=== PATIENT | female | born 1995 | race Caucasian/White ===

== ENCOUNTER 2016-12-31 10:29 | Emergency (ER) | payer BC ==
[2016-12-31 11:10] VITALS: BP 118/72
--- NOTE | 2016-12-31 11:49 | UC ---
Hand/Wrist HPI - HPI Summary HPI Summary: REACHING FOR HER PHONE LAST NIGHT WHILE IN BED. FELL OFF BED AND LANDED ON LEFT HAND. NOW HAS PAIN TO LEFT THUMB. - History Of Current Complaint Chief Complaint: UCUpperExtremity Stated Complaint: THUMB INJURY Time Seen by Provider: 12/31/16 11:44 Hx Obtained From: Patient Hx Last Menstrual Period: 12/24/16 Onset/Duration: Sudden Onset, Lasting Hours, Still Present Severity Initially: Moderate Severity Currently: Moderate Pain Intensity: 8 Pain Scale Used: 0-10 Numeric Character Of Pain: Aching Aggravating Factor(s): Movement Alleviating: Rest Associated Signs And Symptoms: Positive: Swelling Related History: Dominant Hand Right - Allergies/Home Medications Allergies/Adverse Reactions: Allergies Allergy/AdvReac Type Severity Reaction Status Date / Time Sulfa Antibiotics Allergy Rash Verified 12/31/16 11:10 PMH/Surg Hx/FS Hx/Imm Hx Previously Healthy: Yes - Surgical History Surgical History: Yes Surgery Procedure, Year, and Place: LUMBAR PUNCTURE 10/05/13 - Family History Known Family History: Positive: Hypertension Negative: Diabetes - Social History Alcohol Use: Occasionally Alcohol Amount: SOCIAL Substance Use Type: None Smoking Status (MU): Never Smoked Tobacco - Immunization History Most Recent Tetanus Shot: UNSURE (PT IS IN COLLEGE) Review of Systems Constitutional: Negative Skin: Negative Respiratory: Negative Cardiovascular: Negative Gastrointestinal: Negative Musculoskeletal: Arthralgia, Decreased ROM All Other Systems Reviewed And Are Negative: Yes Physical Exam Triage Information Reviewed: Yes Appearance: Well-Appearing, No Pain Distress, Well-Nourished Vital Signs: Initial Vital Signs Temp 98.5 F 12/31/16 11:06 Pulse 85 12/31/16 11:06 Resp 16 12/31/16 11:06 BP 118/72 12/31/16 11:06 Pulse Ox 99 12/31/16 11:06 Vital Signs Reviewed: Yes Eyes: Positive: Conjunctiva Clear ENT: Positive: Hearing grossly normal Neck: Positive: Supple Respiratory: Positive: No respiratory distress, No accessory muscle use Cardiovascular: Positive: Pulses Normal Abdomen Description: Positive: Soft Musculoskeletal: Positive: ROM Limited @ - LEFT THUMB, Edema @ - MINIMAL EDEMA LEFT THUMB MCP JOINT, Other: - TTP LEFT THUMB DISTALLY AND AT MCP JOINT. NO WRIST TENDERNESS. FULL ROM AT WRIST Neurological: Positive: Alert Psychological: Positive: Age Appropriate Behavior Skin: Negative: rashes Diagnostics - Radiology LEFT THUMB XRAY Xray Interpretation: No Acute Changes Radiology Interpretation Completed By: Radiologist Hand/Wrist Course/Dx - Differential Dx/Diagnosis Provider Diagnoses: LEFT THUMB SPRAIN Discharge - Discharge Plan Condition: Stable Disposition: HOME Patient Education Materials: Finger Sprain (ED) Referrals: Conor Brandt MD [Medical Doctor] - If Needed Jeanne Fang MD [Primary Care Provider] - If Needed Additional Instructions: XRAY UNREMARKABLE TODAY. WEAR SPLINT FOR SUPPORT AND PROTECTION. IF NOT IMPROVING EXPECTED OVER THE NEXT WEEK FOLLOW-UP WITH ORTHO.
--- NOTE | 2016-12-31 12:20 | RAD ---
INDICATION: Left thumb injury. TECHNIQUE: 3 views of the left thumb were obtained. FINDINGS: The bones are in normal alignment. No fracture is seen. Joint spaces appear maintained. IMPRESSION: NO EVIDENCE FOR FRACTURE.
== END 2016-12-31 12:38 | disposition home or self-care (01) ==
LOC: UCEAST 10:29
DX: S63.602A Unspecified sprain of left thumb, initial encounter (principal); W06.XXXA Fall from bed, initial encounter; Z88.2 Allergy status to sulfonamides
CPT/HCPCS: 99212; G0463

== ENCOUNTER 2019-10-14 14:55 | Emergency (ER) | payer BC ==
[2019-10-14 15:10] VITALS: BP 136/86
--- NOTE | 2019-10-14 15:21 | UC ---
Skin Complaint HPI - HPI Summary HPI Summary: 24 yo with increased facial dryness x 1-2 weeks; began using cetaphil moisturizer, followed by use of cetaphil cleanser. Onset of erythema of the cheeks along with itching. She has used topical benadryl with exacerbation of erythema and discomfort. Hx of asthma but no hx of eczema or skin problems. - History of Current Complaint Chief Complaint: UCSkin Time Seen by Provider: 10/14/19 15:11 Stated Complaint: RASH Hx Obtained From: Patient Hx Last Menstrual Period: 3 weeks Onset/Duration: Gradual Onset, Lasting Days Skin Exposure Onset/Duration: Days Ago, Worse Since: - this morning Timing: Constant Onset Severity: Mild Current Severity: Moderate Pain Intensity: 3 Location: Discrete - both cheeks Aggravating Factor(s): Showering, Touch Alleviating Factor(s): Nothing Associated Signs & Symptoms: Positive: Negative Related History: Other: - recent change of skin care - Allergy/Home Medications Allergies/Adverse Reactions: Allergies Allergy/AdvReac Type Severity Reaction Status Date / Time Sulfa (Sulfonamide Allergy Rash Verified 02/27/19 15:02 Antibiotics) Home Medications: Home Medications Budesonide/Formote 160/4.5(NF) [Symbicort 160/4.5 (NF)] 2 puff INH BID 04/04/18 [History Confirmed 02/27/19] Desogestrel-Ethinyl Estradiol [Enskyce] 1 tab PO DAILY 04/04/18 [History Confirmed 02/27/19] Levocetirizine Dihydrochloride [Xyzal Allergy 24Hr] 5 mg PO DAILY 04/04/18 [ History Confirmed 02/27/19] Mometasone NASAL (NF) [Nasonex (NF)] 50 mcg NA DAILY 04/04/18 [History Confirmed 02/27/19] PMH/Surg Hx/FS Hx/Imm Hx Previously Healthy: Yes Respiratory History: Asthma - Surgical History Surgical History: Yes Surgery Procedure, Year, and Place: LUMBAR PUNCTURE 10/05/13 - Family History Known Family History: Positive: Hypertension, Respiratory Disease - asthma Negative: Diabetes - Social History Occupation: Student - vet student Lives: Dormitory/Roommates Alcohol Use: Occasionally Alcohol Amount: SOCIAL Substance Use Type: None Smoking Status (MU): Never Smoked Tobacco - Immunization History Most Recent Tetanus Shot: UNSURE (PT IS IN COLLEGE) Review of Systems All Other Systems Reviewed And Are Negative: Yes Constitutional: Positive: Negative Skin: Positive: Rash Eyes: Positive: Negative. Negative: Eye Redness ENT: Positive: Negative Respiratory: Positive: Negative Cardiovascular: Positive: Negative Gastrointestinal: Positive: Negative Genitourinary: Positive: Negative Motor: Positive: Negative Neurovascular: Positive: Negative Musculoskeletal: Positive: Negative Neurological/Mental Status: Positive: Negative Psychological: Positive: Negative Is Patient Immunocompromised?: No Physical Exam Triage Information Reviewed: Yes Appearance: Well-Appearing, No Pain Distress Vital Signs: Initial Vital Signs Temp 98.7 F 10/14/19 15:05 Pulse 89 10/14/19 15:05 Resp 16 10/14/19 15:05 BP 136/86 10/14/19 15:05 Pulse Ox 98 10/14/19 15:05 Eye Exam: Normal Eyes: Positive: Conjunctiva Clear ENT: Positive: Pharynx normal, TMs normal Neck: Positive: Supple, Nontender, No Lymphadenopathy Respiratory: Positive: Lungs clear, Normal breath sounds Cardiovascular: Positive: RRR, No Murmur Musculoskeletal Exam: Normal Neurological Exam: Normal Psychological Exam: Normal Skin: Positive: Rashes - bilateral confluent facial erythema and dryness both cheeks. No scale. No blanching. Course/Dx - Course Course Of Treatment: Stop use of cetaphil wash, use benadryl at night, topical HC cream for one week , CeraVe suggested for moisturizer. - Differential Diagnoses - Skin Complaint Differential Diagnoses: Cellulitis, Contact Dermatitis - Diagnoses Provider Diagnosis: Contact dermatitis Discharge ED - Sign-Out/Discharge Documenting (check all that apply): Patient Departure All imaging exams completed and their final reports reviewed: No Studies - Discharge Plan Condition: Stable Disposition: HOME Patient Education Materials: Contact Dermatitis (ED) Referrals: Ashly Schilling [Primary Care Provider] - Marifer Lopez [Medical Doctor] - Additional Instructions: STOP use of Cetaphil wash. Cool cmpress your face, followed by a light application of over the counter 1% hydrocortisone cream. This can be used twice daily for up to one week, but avoid excess use as this could cause thinning of the skin. Use benadryl at night to relieve itching. You might try using Dove soap to wash, and CeraVE cream as a skin moisturizer. I have given you the name of a montessori paraprofessional should this not resolve the problem. - Billing Disposition and Condition Condition: STABLE Disposition: Home
== END 2019-10-14 15:38 | disposition home or self-care (01) ==
LOC: UCEAST 14:55
DX: L25.8 Unspecified contact dermatitis due to other agents (principal); J45.909 Unspecified asthma, uncomplicated; Z88.2 Allergy status to sulfonamides
CPT/HCPCS: 99201; G0463